=== PATIENT | male | born 1940 | race Caucasian/White ===

== ENCOUNTER → 2019-09-27 | Outpatient (CLI) | payer OTHER | LOC: SJCVC 13:31 | PROVIDERS: ATTEND Internal Medicine Cardiovascular Disease | DX: I48.21 Permanent atrial fibrillation (principal); R94.31 Abnormal electrocardiogram [ECG] [EKG]; I42.9 Cardiomyopathy, unspecified; E78.00 Pure hypercholesterolemia, unspecified; I10 Essential (primary) hypertension; I05.9 Rheumatic mitral valve disease, unspecified; D68.59 Other primary thrombophilia; E78.5 Hyperlipidemia, unspecified; Z79.899 Other long term (current) drug therapy ==

== ENCOUNTER 2019-12-19 17:02 | Inpatient (IN) | payer OTHER ==
[~2019-12-19] VITALS: Ht 198.1 cm; Wt 100.9 kg
[2019-12-19 17:06] VITALS: BP 106/74
[2019-12-19 18:09] LABS: HEMATOCRIT 35.6 % (42.0-52.0); HEMOGLOBIN 12.2 gm/dL (14.0-18.0); MCHC 34.2 g/dL (28.0-37.0); MCV 99.5 fL (80.0-100.0); PLATELET COUNT 183 thou/uL (150-400); RBC 3.58 mil/uL (4.50-6.00); RDW 13.5 % (10.5-14.5); WBC 4.1 thou/uL (4.0-11.0)
[2019-12-19 18:19] LABS: CALCIUM 8.7 mg/dL (8.5-10.1); CREATININE 0.9 mg/dL (0.7-1.3); POTASSIUM 4.7 mmol/L (3.5-5.1)
[2019-12-19 18:24] LABS: ALBUMIN 3.5 g/dL (3.4-5.0); TOTAL PROTEIN 6.5 g/dL (6.4-8.2)
[2019-12-19 18:26] LABS: INR 1.1; PROTIME 11.2 Seconds (9.3-11.4)
[2019-12-19 18:39] LABS: URINE BILIRUBIN NEGATIVE (Negative); URINE BLOOD NEGATIVE (Negative); URINE CLARITY CLEAR; URINE COLOR YELLOW; URINE GLUCOSE-RANDOM* NEGATIVE (Negative); URINE KETONES NEGATIVE (Negative); URINE LEUKOCYTES-REFLEX NEGATIVE (Negative); URINE NITRITE-REFLEX NEGATIVE (Negative); URINE PROTEIN (DIPSTICK) NEGATIVE (Negative); URINE SPECIFIC GRAVITY 1.015 (1.005-1.035); URINE UROBILINOGEN 0.2 E.U./dl (0.2-1.0)
[2019-12-19] MEDS ORDERED: CALCIUM 500+D1 EAC2 PO (18:45)
[2019-12-19] MEDS ORDERED: CHLORTHALIDONE25 MG PO (18:45)
[2019-12-19] MEDS ORDERED: DULCOLAX STOOL100 M1 PO (18:46)
[2019-12-19] MEDS ORDERED: FINASTERIDE5 MG PO (18:46)
[2019-12-19] MEDS ORDERED: ELIQUIS5 MG PO (18:46)
[2019-12-19] MEDS ORDERED: CARVEDILOL25 MG PO (18:46)
[2019-12-19] MEDS ORDERED: FISH OIL 1,0001 EAC9 PO (18:47)
[2019-12-19] MEDS ORDERED: GERITOL COMPLE1 EAC2 PO (18:47)
[2019-12-19] MEDS ORDERED: FLONASE 0.05%50 MCG NARES (18:47)
[2019-12-19 18:48] LABS: ABSOLUTE NEUTROPHILS 2.6 thou/uL (1.4-8.2)
[2019-12-19] MEDS ORDERED: MECLIZINE HCL25 M1 PO (18:48)
[2019-12-19] MEDS ORDERED: MIRALAX17 GM PO (18:49)
[2019-12-19] MEDS ORDERED: FLOMAX0.4 MG PO (18:50)
[2019-12-19 20:11] VITALS: BP 145/89
[2019-12-19 20:45] VITALS: BP 145/89
[2019-12-19 21:03] VITALS: BP 157/99
[2019-12-20 00:12] VITALS: BP 131/80
--- NOTE | 2019-12-20 03:19 | NUR ---
PATIENT TRANSFERRED FROM ER AT APPROXIMATELY 2100. ADMISSION COMPLETED. PATIENT DENIES PAIN AT ASSESSMENT. PATIENT A&O X 4 AND USES CALL LIGHT APPROPRIATELY. NIH STROKE SCALE ASSESSMENTS COMPLETED ORDERED. WILL CONTINUE TO MONITOR.
[2019-12-20 05:39] VITALS: BP 148/90
[2019-12-20 06:45] LABS: CHOLESTEROL 145 mg/dL (<200); HDL CHOLESTEROL 50 mg/dL (>40); LDL CHOLESTEROL 79 mg/dL (<100); TC:HDL 2.9 Ratio (Not establshd); TRIGLYCERIDE 84 mg/dL (<150); VLDL 17 mg/dL (<40)
[2019-12-20 06:48] LABS: SERUM ASSESSMENT Clear
--- NOTE | 2019-12-20 08:51 | EKG ---
[facility] [place] [address] ELECTROCARDIOGRAM REPORT Name: LYNDA KEMP Room #: 214-P ADM IN M.R.#: [id number] Admission: 12/19/19 Attend Phys: Ritika Childs MD Discharge: Date of : 42 Report #: [id number] THIS REPORT FOR: cc: Regan Burnett James L. DO Lundgren, Craig H. 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
--- NOTE | 2019-12-20 09:21 | 2DMMODE ---
[facility] [place] [address] 2 D/M-MODE ECHOCARDIOGRAM Name: LYNDA KEMP Room #: 214-P ADM IN M.R.#: [id number] Admission: 12/19/19 Attend Phys: Ritika Childs MD Discharge: Date of : 42 Report #: [id number] THIS REPORT FOR: cc: Regan Burnett James L. DO Lammoglia, Francisco J. MD ~ APPROVED REPORT Study performed: 12/20/2019 08:15:25 EXAM: Comprehensive 2D, Doppler, and color-flow Echocardiogram Patient Location: Bedside Room #: 214 Status: routine BSA: 2.19 HR: 63 bpm BP: 148/90 mmHg Rhythm: Atrial Fibrillation Other Information Study Quality: Adequate Indications Dizziness. Hx: Afib, HTN. 2D Dimensions RVDd: 34.91 mm IVSd: 9.43 (7-11mm) LVOT Diam: 22.29 (18-24mm) LVDd: 49.44 mm PWd: 8.63 (7-11mm) Ascending Ao: 35.67 (22-36mm) LVDs: 36.40 (25-40mm) Aortic Root: 36.04 mm Volumes Left Atrial Volume (Systole) Single Plane 4CH: 44.35 mL Single Plane 2CH: 64.23 mL Aortic Valve AoV Peak Blas.: 0.76 m/s AO Peak Gr.: 2.30 mmHg LVOT Max P.91 mmHg LVOT Max V: 0.69 m/s THANG Vmax: 3.56 cm2 [facility] [address] [place] [address] 2 D/M-MODE ECHOCARDIOGRAM Name: LYNDA KEMP Inez Room #: 214-P ADM IN M.R.#: [id number] Admission: 12/19/19 Attend Phys: Ritika Childs MD Discharge: Date of : 42 Report #: [id number] Mitral Valve MV Decel. Time: 183.08 ms MV E Max Blas.: 0.73 m/s Tricuspid Valve RAP Estimate: 5.00 mmHg Left Ventricle The left ventricle is normal size. There is normal LV segmental wall motion. There is normal left ventricular wall thickness. Left ventricular systolic function is normal. LVEF is 50-55%. This study is not technically sufficient to allow evaluation of the LV diastolic function due to atrial fibrillation. Right Ventricle The right ventricle is normal size. The right ventricular systolic function is normal. Atria Left atrium is at the upper limits of normal. The right atrium size is normal. Aortic Valve The aortic valve is normal in structure. Trace aortic regurgitation. There is no aortic valvular stenosis. Mitral Valve The mitral valve is normal in structure. Mild mitral regurgitation. Tricuspid Valve The tricuspid valve is normal in structure. Trace tricuspid regurgitation. Unable to assess PA pressure. Pulmonic Valve The pulmonary valve is normal in structure. Trace pulmonic regurgitation. Great Vessels The aortic root is normal in size. The ascending aorta is normal in size. IVC is normal in size and collapses >50% with inspiration. Pericardium There is no pericardial effusion. [facility] [address] [place] [address] 2 D/M-MODE ECHOCARDIOGRAM Name: LYNDA KEMP Room #: 214-P ADM IN M.R.#: [id number] Admission: 12/19/19 Attend Phys: Ritika Childs MD Discharge: Date of : 42 Report #: [id number] <Conclusion> The left ventricle is normal size. LVEF is 50-55%. The aortic valve is normal in structure. Trace aortic regurgitation. The mitral valve is normal in structure. Mild mitral regurgitation. The tricuspid valve is normal in structure. Trace tricuspid regurgitation. Unable to assess PA pressure. The pulmonary valve is normal in structure. Trace pulmonic regurgitation. There is no pericardial effusion. <ELECTRONICALLY SIGNED> By: Zi Guidry MD 12/20/19919 9 9 Zi Guidry MD /INF
[2019-12-20 16:30] VITALS: BP 134/76
--- NOTE | 2019-12-20 16:47 | NUR ---
Met with patient and at bedside. patient and reside in independent home in [place]. 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 PCP Dr Regan Burnett. Patient admits with stroke. Therapy evals in process. Plan 5N consult. Discussed 5N and skilled rehab. Patient and want to discuss possibility of 5N consult. Casemgt following.
--- NOTE | 2019-12-20 18:28 | NUR ---
ASSESSMENT CHARTED. PT ALERT AND ORIENTED. VSS. SEEN BY NEUROLOGIST. NEW ORDERS NOTED. DENIED HAVING PAIN OR DISCOMFORT. EVALUATED BY PT/OT AND SPEECH. AT THE BEDSIDE. UPDATED ON PT'S PROGRESS. NO CONCERNS AT THIS TIME.
[2019-12-20 19:40] VITALS: BP 114/72
--- NOTE | 2019-12-21 02:33 | NUR ---
ASSUMED CARE OF PATIENT AT 1900. NIH STROKE SCALE ASSESSMENTS REMAIN UNCHANGED. VSS. WILL CONTINUE TO MONITOR.
[2019-12-21 03:54] VITALS: BP 142/76
[2019-12-21 04:07] LABS: GLYCOHEMOGLOBIN (HGB A1C) 5.5 % (4.8-5.6)
[2019-12-21 05:56] LABS: HEMATOCRIT 37.3 % (42.0-52.0); HEMOGLOBIN 12.8 gm/dL (14.0-18.0); MCH 33.9 pg (26.0-34.0); MCHC 34.4 g/dL (28.0-37.0); MCV 98.4 fL (80.0-100.0); RBC 3.79 mil/uL (4.50-6.00); WBC 4.9 thou/uL (4.0-11.0)
[2019-12-21 07:00] LABS: CALCIUM 8.3 mg/dL (8.5-10.1); CREATININE 0.9 mg/dL (0.7-1.3); POTASSIUM 4.2 mmol/L (3.5-5.1)
[2019-12-21 08:28] VITALS: BP 134/79
--- NOTE | 2019-12-21 09:57 | NUR ---
ASSUMED CARE OF PT AT SHIFT CHANGE, WE WAS ABSENT FOR SRINIVASA. RETURNED A&0X4, LETHARGIC, SPEECH EVAL AND WILL DO VIDEO SWALLOW LATER THIS A.M. SEVERAL CONSULTS ACKNOWLEDGED, PT AMB STEADY YET ENCOURAGED TO SIT AT EDGE OF BED BEFORE RISING AND TO USE THE CALL LIGHT FOR ANY NEEDS INCL SBA W/AMBULATION. SPOUSE CAME AFTER 0900. POSS 5N TRANSFER, THEY ARE TO EVAL. DIET ORDER CHANGED AND PT REC TRAY AFTER WE CALLED FOR FOOD. SEE SEPARATE INTERVENTIONS FOR ASSESSMENTS
[2019-12-21 11:12] VITALS: BP 87/51
[2019-12-21 11:49] VITALS: BP 97/63
--- NOTE | 2019-12-21 14:28 | NUR ---
NOTE: UPON FURTHER ASSESSMENT PT'S ISSUES STARTED WITH A BOUT OF SHINGLES IN LATE OCTOBER, PT STARTED ON THE MEDICATION AND HAD AN ADVERSE REACTION, N/V. WAS TAKEN OFF THE MEDICATION, FEW DAYS LATER HAD HIS STROKE. SHINGLES ARE CLOSED AND ALMOST GONE, THEY ARE NOT BOTHERING PT.
--- NOTE | 2019-12-21 14:29 | NUR ---
5N virgil and patient accepted to 5N. Has consults today with planned transfer in am to 5N. Dr Taveras sp with patient and who are agreeable with transfer.
[2019-12-21 15:09] VITALS: BP 125/74
--- NOTE | 2019-12-21 16:39 | NUR ---
I have reviewed the documentation by LAYTON GERONIMO from 12/21/19 to 12/21/19 and I concur with it. RENZO REARDON
--- NOTE | 2019-12-21 18:43 | HC ---
[facility] [place] [address] CONSULTATION Name: LYNDA KEMP Room #: 214-P ADM IN .R.#: [id number] Admission: 12/19/19 Attend Phys: Ritika Childs MD Discharge: Date of : 42 Report #: [id number] THIS REPORT FOR: cc: Regan Burnett James L. DO Khosla, Parveen K. MD ~ CC: Regan Childs DATE OF SERVICE: 12/20/2019 HISTORY OF PRESENT ILLNESS: This is a 79-year-old male patient who was evaluated by me for the possibility of stroke. The stroke was demonstrated on the CT scan of the head as I understand. I talked to the Emergency Room physician who took care of this patient. I talked to Dr. Childs, the hospitalist, who is going to see this patient today. The nurses were there when I saw this patient and I talked to the patient's . The history is that this patient had shingles on 11/21. He was given acyclovir and he has noticed that he started having ambulation difficulty at that time, which has progressively become worse. Since acyclovir was started at that time, he attributed that to acyclovir, but discontinuation of the acyclovir has not stopped the progression of the patient's ambulation difficulty. He did not have any significant ambulation difficulty before. REVIEW OF SYSTEMS: Indicate that he has atrial fibrillation and he has been on long-term anticoagulation. He just missed maybe 1 dose. He also has a history of nonischemic cardiomyopathy. He tells me that he has a history of hypertension. He has hyponatremia, but he also has hyponatremia before. He denies any prior history of stroke. 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 He denies any ENT, respiratory, , musculoskeletal, constitutional, dermatological, hematological, psychiatric, throat, allergic symptom associated with present symptomatology. PAST MEDICAL HISTORY: Positive for herpes zoster on . FAMILY HISTORY: Unremarkable. SOCIAL HISTORY: He does not drink alcohol or smoke on a regular basis. PHYSICAL EXAMINATION: Indicate that the patient is alert, responsive, able to follow simple and complex command. His speech, concentration, fund of knowledge is at his baseline. 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 He has symmetrical strength, sensation, reflexes and tone in all 4 extremities. Reflexes are somewhat diminished in the lower extremities. His plantars are mute, but his position sense is present and he [address] [address] CONSULTATION Name: LYNDA KEMP Room #: 214-P [facility] IN M.R.#: [id number] Admission: 12/19/19 Attend Phys: Ritika Childs MD Discharge: Date of : 42 Report #: [id number] says that his feeling has not changed much. His pulses are somewhat difficult to feel, but I think is palpable. He does have atrial fibrillation, but there was no respiratory difficulty or rhonchi was noticed. He is a very developed individual who does not have any dysmorphic features of eyes, ears and face. His vision and hearing looks adequate. His blood pressure is 148/90, respiration is 17, pulse is 97.8. LABORATORY DATA: His white count is 4.1. His sodium is slightly low at 127. He does not have any edema, cyanosis or jaundice. His hearing and vision is adequate. CT scan showed a question of brainstem CVA. IMPRESSION: This patient may have had a CVA in the brainstem. That needs to be confirmed by MRI. If MRI confirmed that, then we will need to figure out why he is having stroke. He will need cardiac workup. That is being addressed by Cardiology, but he may need some ID workup also because herpes zoster is known to cause strokes or increase the chances of patient having stroke. His reflexes are somewhat diminished and we will check a B12 level. His further workup will depend upon the outcome of the above testing. Thank you very much for this referral. <ELECTRONICALLY SIGNED> By: Jose Carlos Marquez MD 12/21/19 1843 1047 1430 Jose Carlos Marquez MD /nt
[2019-12-21 20:26] VITALS: BP 124/72
[2019-12-22 04:10] VITALS: BP 139/83
--- NOTE | 2019-12-22 05:38 | NUR ---
SLEPT MOST OF SHIFT. WORKING ON GOALS AND PLAN OF CARE FOR NOC. PROGRESSING TOWARDS GOALS FOR TX TO 5N TODAY. UP AD NOVA IN ROOM WITH STEADY GAIT. DENIES COMPLAINTS OF PAIN OR SHORTNESS. CONTINUE TO ASSES CLOSELY.
--- NOTE | 2019-12-22 08:16 | NUR ---
ASSUMED CARE OF PT AT SHIFT CHANGE, SPEECH CLEARER THAN DAY PRIOR. UP AD NOVA. SEE SEPARATE INTERVENTIONS FOR ASSESSMENTS. SPOUSE TO COME AFTER 0900. PT STATES HE FEELS BETTER. CARDIAC MONITORED. ENCOURAGED HIM TO USE CALL LIGHT FOR ANY NEEDS. BLIND R EYE. BOWEL MEDS GIVEN, WILL WALK IN HALLS TODAY AGAIN
[2019-12-22 08:27] VITALS: BP 121/71; BP 127/77; BP 136/81
[2019-12-22] MEDS ORDERED: COZAAR 25 MG TA25 M1 PO (11:54)
[2019-12-22] MEDS ORDERED: TYLENOL325 MG PO (11:54)
[2019-12-22] MEDS ORDERED: ASA5UEC PO (11:54)
--- NOTE | 2019-12-22 12:25 | NUR ---
Pt dcing to 5N acute rehab. The attending has spoken with pt and his and they are agreeable. Dr. Taveras was here and has spoken with all parties. All in agreement for dc to acute rehab vs referrals to or [facility] at this time. Pt's goal is to return home with his after rehabing. 5N cm to follow.
--- NOTE | 2019-12-22 15:56 | NUR ---
DISCHARGED PT TO INHOUSE FACILITY 5N, AFTER GIVING REPORT TO ION ROJO. LET HER KNOW HE HAD HOME MEDS IN HIS BAG, SHE ACKNOWLEDGED AND SAID SHE'D COME TO ROOM SHORTLY. PT SET UP IN CHAIR WITH CALL LIGHT
--- NOTE | 2019-12-22 17:46 | NUR ---
I have reviewed the documentation by LAYTON GERONIMO from 12/22/19 to 12/22/19 and I concur with it. RENZO REARDON
== END 2019-12-22 15:24 | DRG 65 ==
LOC: ER 17:02 → EROBS 19:48 → 2N 19:48
PROVIDERS: Emergency Medicine; Nurse Practitioner Family; ADMIT Internal Medicine; ATTEND Internal Medicine
DX: I63.89 Other cerebral infarction (principal); E87.1 Hypo-osmolality and hyponatremia; D68.59 Other primary thrombophilia; I48.20 Chronic atrial fibrillation, unspecified; I48.21 Permanent atrial fibrillation; I10 Essential (primary) hypertension; N40.0 Benign prostatic hyperplasia without lower urinary tract symptoms; E78.5 Hyperlipidemia, unspecified; G47.00 Insomnia, unspecified; B02.9 Zoster without complications; R13.10 Dysphagia, unspecified; D35.2 Benign neoplasm of pituitary gland; I25.5 Ischemic cardiomyopathy; E53.8 Deficiency of other specified B group vitamins; Z79.82 Long term (current) use of aspirin; Z79.899 Other long term (current) drug therapy; Z85.47 Personal history of malignant neoplasm of testis
CPT/HCPCS: 10081

== ENCOUNTER 2019-12-21 11:43 | Inpatient (IN) | payer OTHER ==
[~2019-12-21] VITALS: Ht 182.9 cm; Wt 101.2 kg
--- NOTE | ~2019-12-21 | PLAN ---
[facility] [place] [address] REHAB UNIT PLAN OF CARE Name: LYNDA KEMP Room #: 509-P ADM IN M.R.#: [id number] Admission: 12/22/19 Attend Phys: Ian Yu MD Discharge: Date of : 42 Report #: [id number] THIS REPORT FOR: //name// CC: Ian Burnett DATE OF SERVICE: 12/25/2019 PROGRESS NOTE/OVERALL PLAN OF CARE SUBJECTIVE: The patient was seen back today in followup. He is in no distress. PHYSICAL EXAMINATION: VITAL SIGNS: Temperature 98.1, pulse 66, respirations 16, blood pressure 126/81. GENERAL: The patient is alert, pleasant. He is appropriate. HEENT: Appeared to be benign. NEUROLOGIC: No focal weakness of both upper and lower extremities. He remains with dysphagia and is on a nectar thick liquid diet. He has a history of permanent atrial fibrillation. We will be adding VitalStim to his program as discussed with physical therapy. He has been contact guard with basic transfers and has been contact guard for ambulation 200 feet. In occupational therapy, lower body dressing is supervision. The patient did miss some therapy on 12/23/2019 due to some low blood pressure. Pressure this morning was 126/81. ASSESSMENT: 1. 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 2. Dysphagia, on thickened liquids. 3. Gait instability with gait ataxia. 4. Pituitary macroadenoma. 5. Recent herpes zoster with Infectious Disease involved. 6. Ischemic cardiomyopathy. 7. History of chronic atrial fibrillation. 8. Hypertension. 9. Hyperlipidemia. PLAN: The overall plan of care is based on the preadmission screen, post-admission physician evaluation and information garnered from therapy assessments. 1. Estimated length of stay is probably 7-14 days. 2. Medical prognosis is reasonably good. 3. Anticipated interventions includes the interdisciplinary acute inpatient [facility] [address] [place] [address] REHAB UNIT PLAN OF CARE Name: LYNDA KEMP Room #: 509-P [facility]#: [id number] Admission: 12/22/19 Attend Phys: Ian Yu MD Discharge: Date of : 42 Report #: [id number] rehabilitation program. 4. Anticipated functional outcomes would be for the patient to become modified independent with transfers, mobility, ADLs, improvement with basic swallowing and cognition, so that he can return back to the home setting. 5. Discharge destination would be back home with . 6. Expected therapy by discipline includes PT and OT 1-1/2 hours per day, each 5 days a week throughout the duration of the acute inpatient rehabilitation stay. By: [id number] Ian Yu MD /PMT
--- NOTE | ~2019-12-21 | EKG ---
[facility] [place] [address] ELECTROCARDIOGRAM REPORT Name: LYNDA KEMP Room #: 509- ADM IN M.R.#: [id number] Admission: 12/22/19 Attend Phys: Ian Yu MD Discharge: Date of : 42 Report #: [id number] THIS REPORT FOR: cc: Regan Burnett James L. 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
[~2019-12-21 11:43] MED LIST: CALCIUM 500+D1 EAC2 PO; CARVEDILOL25 MG PO; CHLORTHALIDONE25 MG PO; DULCOLAX STOOL100 M1 PO; ELIQUIS5 MG PO; FINASTERIDE5 MG PO; FISH OIL 1,0001 EAC9 PO; FLOMAX0.4 MG PO; FLONASE 0.05%50 MCG NARES; GERITOL COMPLE1 EAC2 PO; MECLIZINE HCL25 M1 PO; MIRALAX17 GM PO
[2019-12-22] MEDS ORDERED: TYLENOL325 MG PO (11:54)
[2019-12-22] MEDS ORDERED: COZAAR 25 MG TA25 M1 PO (11:54)
[2019-12-22] MEDS ORDERED: ASA5UEC PO (11:54)
--- NOTE | 2019-12-22 15:57 | NUR ---
chart review. pt new to acute rehab this afternoon. juan josé came up with him, srinivas in restroon. cm visited wit juan josé phone call, intro to cm and team meeting. juan josé they live in house, he is independent. has walker. have 12 stairs to upper level bilat handrails and a sprawl staircase down to basement 13, he drives, manage own medication. no rehab or hh in past per . will cont following as needed for dc needs.
[2019-12-22 16:00] VITALS: BP 126/79
--- NOTE | 2019-12-22 18:25 | NUR ---
ASSUMED CARE OF PT AT 1530 WHEN PT BROUGHT TO UNIT BY NURSE ON PRIOR UNIT. RECEIVED REPORT FROM ALIA HERNANDEZ PRIOR TO TRANSFER TO UNIT. SPOUSE IS AT THE BEDSIDE. ADMISSION HX AND ASSESSMENT COMPLETED. WEIGHT, HEIGHT AND VITALS OBTAINED AND DOCUMENTED. ASMISSION EDUCATION COMPLETED. PT PROVIDED WITH DINNER. ADMISSION CONSENTS SIGNED BY PATIENT AT TIME OF ADMISSION. CONSULTS CALLED WITH EXCEPTION OF ENDOCRINLOGY AND NEUROLOGY WHO WERE UNREACHABLE AFTER HOURS. FALL PRECAUTIONS IN PLACE AND NURSING WILL CONTINUE TO MONITOR.
[2019-12-22 19:31] VITALS: BP 126/60
--- NOTE | 2019-12-23 05:12 | NUR ---
Armin is alert and oriented x3, pleasant with clear voice, normal respirations, with no nausea and vomiting noted. Patient is on Aspiraion precations, with mechanical soft diet and nectar thick liquids, but is able to take his meds whole with thickened liquid, puree or applesauce. Patient received his bedtime medications and pain pill with applesauce upon request, stating he wanted to go to bed early. He did not like too much that everytime he needed to use the bathroom or transfer, he would maría to call for help and use the gaitbelt, and was reassured and re-educated by nurse about the safety concerns associated. Patient retired into his bed from his chair, and remained in bed resting, eyes closed and visible, normal respirations
[2019-12-23 05:38] LABS: HEMATOCRIT 35.6 % (42.0-52.0); HEMOGLOBIN 12.3 gm/dL (14.0-18.0); MCH 33.9 pg (26.0-34.0); MCHC 34.6 g/dL (28.0-37.0); MCV 98.1 fL (80.0-100.0); RBC 3.63 mil/uL (4.50-6.00); RDW 12.9 % (10.5-14.5); WBC 5.6 thou/uL (4.0-11.0)
[2019-12-23 06:02] LABS: CALCIUM 8.2 mg/dL (8.5-10.1); CREATININE 0.8 mg/dL (0.7-1.3); POTASSIUM 4.1 mmol/L (3.5-5.1)
[2019-12-23 08:00] VITALS: BP 129/72
--- NOTE | 2019-12-23 10:39 | NUR ---
ASSUMED CARE AT 0700. PATIENT IS ALERT AND ORIENTED X3. NO WEAKNESS NOTED AT THIS TIME. PATIENT CONTINUES ON NECTAR THICK LIQUIDS. UP IN THE CHAIR FOR BREAKFAST. HX AFIB. PATIENT IS NONCOMPLIANT WITH CALLING FOR ASSISTANCE. UP TO THE BATHROOM WITHOUT ASSISTANCE. FALL AND SAFETY PROTOCOLS IN PLACE. DENIES PAIN. CONTINUES TO PROGRESS SLOWLY TOWARDS D/C GOALS. WILL CONTINUE TO [facility].
--- NOTE | 2019-12-23 10:43 | NUR ---
0945 PATIENT BECAME DIAPHORETEIC AND DIZZY WHILE WORKING WITH O.T. BP 102/63, P67. PATIENT ASSISTED BACK TO BED. S.L. STARTED IN HIS LEFT FORARM WITH 2O GA JELCO. IV SITE WITHOUT REDNESS OR SWELLING. PATIENTS BP RECHECKED IN BED. HIS BP 131/70. P66. DR. VINCENT NOTIIFED. NS 500 STARTED. AT [facility]. WE WILL HOLD P.T. UNTIL SEEN DRY DR. VINCENT. WILL REVIEW LABS WITH DR. VINCENT UPON HER ARRIVAL ON THE UNIT. PATIENT IS RESTING QUIETLY IN BED WITH CALL LIGHT IN REACH.
[2019-12-23 19:34] VITALS: BP 145/96
[2019-12-24 08:14] VITALS: BP 100/64
--- NOTE | 2019-12-24 10:09 | NUR ---
[facility] CARE AT 0700. PATIENT IS ALERT AND ORIENTED X4. PATIENT GILL'S, CORE MANAGER ARE EQUAL. LUNGS ARE CLEAR AND DEMINISHED. ABD IS SOFT WITH BSX4. BP LOW. DR. KEMP HERE TO SEE PATIENT. ORDERS RECIEVED TO HOLD TENORMIN THIS A.M. BREAKFAST SERVED IN BED. UP WITH SBA. FALL AND SAFETY PROTOCOLS IN PLACE. DENIES PAIN. CONTINUES TO PROGRESS TOWARDS D/C GOALS. PATIENT HAS S.L. IN HIS LEFT FORARM. NO REDNESS OR SWELLING NOTED. WILL CONTINUE TO MONITER.
[2019-12-24 19:24] VITALS: BP 126/81
--- NOTE | 2019-12-25 04:54 | NUR ---
Patient is alert and oriented x4 with a joviasl personality. He is compliant with all his medications, but still struggles with compliance on calling for assistance when transferring or using the rest room. Nursing staff is re-inforcing teaching on calling for help as often as need arises. Patient vitals are normal and he has no major complaints when asked. resident is in his room, in bed, resting with his eyes closed, breathing normally with no signs of distress.
[2019-12-25 08:00] VITALS: BP 147/95
--- NOTE | 2019-12-25 13:34 | NUR ---
ASSUMED CARE AT 0700. PT DID NOT SLEEP WELL LAST NIGHT. DENIES ANY PAIN OR DISCOMFORT. DOES NOT REQUIRE ANY SLEEP AID FOR NOW. PT IS ALERT AND ORIENTATED BUT SOMETIMES FORGETFUL AND NEED REMINDER TO CALL FOR ASSISTANCE. HE IS STANDBY WITHOUT ANY ASSITIVE DEVICE. ATE 100% OF HIS MEAL AND TOOK ALL HIS MEDS ONE AT A TIME WITH PUDDING. SPEECH THERAPY AT BEDSIDE FOR EVALUATION AND EMPHASIZED TO USE NECTAR LIQUID PT HAS REPORTED DRINKING THIN LIQUID. JANE ROUNDER AND BACKER AWARE, LUNGS CLEAR AND PT IS COMFORTABLE WITH NO COMPLAINS OF COUGHING OR HAVING FEVER. PARTICIPATING IN THERAPY AND PROGRESSING. BROUGHT HOME MEDS AND OK PER JANE TO CONTINUE. MEDICATION SENT TO PHARMACY AND OK TO ADMINISTER TWICE DAILY. CONT TO MONITOR.
[2019-12-25 19:47] VITALS: BP 132/71
--- NOTE | 2019-12-26 04:10 | NUR ---
assumed care approx 1900 evening 12/24. pt sitting up in bed at change of shift alert and oriented x4, appropriate and cooperative. pt stated he had a good day with therapy. pt took hs meds with pudding tolerating well. pt appears to be sleeping soundly with hourly rounding checks. bed alarm on and call light in reach. will continue to monitor.
[2019-12-26 06:09] LABS: ABSOLUTE NEUTROPHILS 3.7 thou/uL (1.4-8.2); BASOPHILS 0.4 % (0.0-2.0); EOSINOPHILS 1.6 % (0.0-3.0); HEMATOCRIT 36.3 % (42.0-52.0); HEMOGLOBIN 12.4 gm/dL (14.0-18.0); LYMPHOCYTES 17.2 % (24.0-44.0); MCHC 34.1 g/dL (28.0-37.0); MCV 96.8 fL (80.0-100.0); MONOCYTES 11.2 % (1.0-8.0); PLATELET COUNT 214 thou/uL (150-400); POLYS 69.6 % (36.0-66.0); RBC 3.75 mil/uL (4.50-6.00); RDW 13.1 % (10.5-14.5); WBC 5.4 thou/uL (4.0-11.0)
[2019-12-26 06:27] LABS: CALCIUM 8.7 mg/dL (8.5-10.1); CREATININE 0.8 mg/dL (0.7-1.3); MAGNESIUM 1.7 mg/dL (1.8-2.4); POTASSIUM 4.1 mmol/L (3.5-5.1)
[2019-12-26 07:55] VITALS: BP 129/89
--- NOTE | 2019-12-26 10:01 | HC ---
[facility] [place] [address] CONSULTATION Name: LYNDA KEMP Room #: 509-P [facility] IN .R.#: [id number] Admission: 12/22/19 Attend Phys: Ian Yu MD Discharge: Date of : 41 Report #: [id number] THIS REPORT FOR: cc: Regan Burnett James L. DO Deutch,David Schumacher. PhD ~ CC: Ian Burnett DATE OF SERVICE: 12/24/2019 BEHAVIORAL STATUS EXAM ATTENDING PHYSICIAN: Ian Yu MD INSPECTOR OUTSIDE STEAM DISTRIBUTION: David Souza, PhD CLINICAL PRESENTATION: The patient is a 79-year-old male admitted to [facility] on 12/19/2019 with slurred speech. 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 His symptoms include slurred speech, weakness, and dysphagia. His past medical history included hypertension, hyperlipidemia and hypercoagulability. 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 A complete description of his medical condition and history can be found in his medical record. Neuropsychological consultation was requested to provide assistance in the assessment of cognitive and emotional status and provide recommendations. Prior to this recent medical event, he is reported to have been living independently with his in their home. He was getting treatment for a shingles infection and taking medication about 3 weeks prior to his hospitalization and developed dizziness. In addition to the dizziness his and family noticed difficulty with speech and brought him in to the hospital. 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 Prior to this most recent deterioration in functioning, he is described as having been independent with instrumental activities of daily living. His has always managed his medication. TECHNIQUES UTILIZED: Clinical interview, review of medical records, staff consultation and behavioral observation, family interview -- , Mini Mental Status Exam 2 standard version, clock drawing, and verbal fluency assessment. [facility] [address] [place] [address] CONSULTATION Name: LYNDA KEMP Room #: 509-P [facility] IN ..#: [id number] Admission: 12/22/19 Attend Phys: Ian Yu MD Discharge: Date of : 41 Report #: [id number] EXAMINATION FINDINGS: The patient was alert and cooperative with the assessment. He does not present with an aphasia. However, he does have decreased auditory comprehension. The patient is utilizing hearing aids, however, comprehension is impaired. Problems with hearing preceded this hospitalization. He does not report auditory or visual hallucinations. There is no prior history of treatment for depression or anxiety. The patient currently does not report feeling anxious or depressed. His does not identify symptoms of anxiety or depression at this time. The patient reports having decreased energy level and difficulty with sleep. There is no reported history of alcohol or drug use. The patient does not report difficulty with short-term memory. His performance on the MMSE 2 brief version is extremely low with a raw score of 11/16. He was 3/3 for initial registration. However, he required multiple attempts at encoding and several attempts were made at introducing more simple terms. While hearing aids are being used, as indicated, auditory comprehension is poor. He was 2/5 for orientation to time and 4/[address] He was 2/3 for immediate recall of 3 items after a brief time delay and distraction. Performance on the MMSE 2 standard version was extremely low with a raw score of 20/30, which is a T score of 28, percentile rank of less than 1. He was 1/5 for serial sevens, 2/2 for naming, 1/1 for repetition, 3/3 for auditory comprehension. He could read and follow a single command and write a sentence. However, the patient could not copy a simple geometric design. Clock drawing included perseveration and impulsivity, with somewhat careless and rushed completion. Variability in executive functioning is suggested. Verbal fluency assessment reveals letter fluency in the low average range with a T score of 39 and percentile rank of 14. Category fluency was extremely low with a raw score of 15, T score of 21 and percentile rank of less than 1. Overall, total fluency was a raw score of 34, T score of 22 and percentile rank of less than 1. The patient is presenting with bmixyedw-sa-yyzosy cognitive deficits. Deficits are noted in orientation, attention/concentration, immediate recall, visual spatial construction and executive functioning. 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 Current neurocognitive functioning is kczizwkf-tm-vqhfhkdk impaired and while there is a vascular component to this presentation, there also appears to be more global deficits. He will require 24-hour care to the extent of assistance in the management of medication, finances and nutrition. A followup neuropsychological assessment is indicated to clarify cognitive status. Thank you very much for allowing me to provide the consultation on this patient. <ELECTRONICALLY SIGNED> By: David Souza, PhD 12/26/19 1001 1728 1820 David Souza, PhD /nt
--- NOTE | 2019-12-26 13:56 | NUR ---
team meeting, reccommendation: mech soft, nectar thick with vital stim. 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 outpt neuro pysch. has 2 childred. needs edcuation with and therapy. dc 01/02 hh with (pt, ot, st, vital stim ). 12/31 possible change to mod I in room. no driving until cleared by .
--- NOTE | 2019-12-26 15:49 | NUR ---
ASSUMED CARE AT 0700. PT REPORTED DID NOT SLEEP WELL THE LAST 2 NIGHTS AND IS RECEPTIVE TO TRIAL MELATONIN. ANGIE MCMAHAN INFORMED AND WILL START 1ST DOSE TONIGHT. PT DENIES ANY PAIN. NEEDS REINFORCEMENT TO CALL FOR ASSISTANCE PT IS GETTING UP WITHOUT CALLING TO USE THE BATHROOM. DR MOSQUEDA NOTIFIED REGARDING HYPONATREMIA, ORDERS FOR URINE SPECIMEN SENT FOR SODIUM AND CORTISOL. PARTICIPATING WITH THERAPY. PROGRESSING WITH THERAPY. CONT TO MONITOR.
[2019-12-26 16:46] LABS: URINE BILIRUBIN NEGATIVE (Negative); URINE BLOOD TRACE (Negative); URINE CLARITY CLEAR; URINE COLOR YELLOW; URINE GLUCOSE-RANDOM* NEGATIVE (Negative); URINE KETONES NEGATIVE (Negative); URINE LEUKOCYTES NEGATIVE (Negative); URINE NITRITE NEGATIVE (Negative); URINE PROTEIN (DIPSTICK) NEGATIVE (Negative); URINE SPECIFIC GRAVITY 1.025 (1.005-1.035); URINE UROBILINOGEN 0.2 E.U./dl (0.2-1.0)
[2019-12-26 19:55] VITALS: BP 128/79
--- NOTE | 2019-12-27 03:05 | NUR ---
Assumed care of patient this pm shift. Patient sleeping currently. Patient in good spirits, calm and cooperative. Patient is medication adherent and takes pills in pudding. Patients assessment shows no signs of acute distress. Vital signs stable. Patient is alert and oriented x3. Breath sounds clear, bowel sounds present, s1 s2 heard with auscultation. Patient denies pain. We will continue to monitor per hospital policy.
[2019-12-27 08:00] VITALS: BP 130/83
--- NOTE | 2019-12-27 09:30 | NUR ---
cm spoke with to luz marina about hh companies, cm checked and [facility] does go to their home location and st does do vital stim with [facility]. per ok to send referral to [facility]. cm sent referral and will check to see if can take him for hh needs.
--- NOTE | 2019-12-27 10:52 | NUR ---
ASSUMED CARE AT 0700. PATIENT IS ALERT AND ORINETED X4. PATIENT GILL'S, PATIENT IS UP WITH ASSIST OF 1 STAFF AND GAIT BELT. LUNGS ARE CLEAR. ABD IS SOFT WITH BSX4. FALL AND SAFETY PROTOCOLS IN PLACE. DENIES PAIN AT THIS TIME. WILL CONTINUE TO MONITER.
--- NOTE | 2019-12-27 15:13 | H ---
[facility] [place] [address] HISTORY AND PHYSICAL Name: LYNDA KEMP Room #: 509-P [facility] IN M.R.#: [id number] Admission: 12/22/19 Attend Phys: Ian Yu MD Discharge: Date of : 41 Report #: [id number] THIS REPORT FOR: cc: Regan Burnett James L. DO Smithson, David G. MD ~ CC: Ian Burnett DATE OF SERVICE: 12/22/2019 HISTORY AND PHYSICAL/POST ADMISSION PHYSICIAN EVALUATION HISTORY OF PRESENT ILLNESS: The patient is a 79-year-old male who was originally admitted to [facility] on 12/19/2019 with slurred speech. MRI confirmed a left mid rhonda infarct and he also was found to have a pituitary macroadenoma. Neurology, Cardiology has been involved and Endocrinology. He was noted to have slurred speech, weakness, dysphagia, and is on thickened liquids. He was felt to be ready for transfer for acute in-hospital inpatient rehabilitation. Neurology has diagnosed him with the brainstem stroke. PAST MEDICAL HISTORY: Includes hypertension, hyperlipidemia, and hypercoagulability. PAST SURGICAL HISTORY: Hernia repair, neck surgery, and testicular biopsy. HABITS: Nonsmoker, occasional alcohol usage. MEDICATIONS: Please see the full medication listing. SOCIAL HISTORY: Premorbidly living at home with his . 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 No assistive device, was independent with ADLs and shared IADLs, right hand dominant. ALLERGIES: ACYCLOVIR. REVIEW OF SYSTEMS: The patient did not offer any complaints of chest pain, shortness of breath or abdominal discomfort. PHYSICAL EXAMINATION: GENERAL: The patient was seen later yesterday. He was alert, pleasant, in no obvious distress on room air. VITAL SIGNS: Temperature 98, pulse 71, respirations 16, blood pressure 126/60. HEENT: Facies appeared symmetric. CHEST: Sounded clear to auscultation. [facility] [address] [place] [address] HISTORY AND PHYSICAL Name: LYNDA KEMP Room #: 509-P [facility] IN [facility]#: [id number] Admission: 12/22/19 Attend Phys: Ian Yu MD Discharge: Date of : 41 Report #: [id number] CARDIOVASCULAR: Regular rate and rhythm. ABDOMEN: Bowel sounds positive, nontender. NEUROLOGICAL: Does have some slurring of his speech. Bilateral upper extremities strength appears to be good. He did reasonably well with qkskkv-fx-ubxx bilaterally. In his lower extremities, he has at least a grade 4-/5. He does have some problems with balance with coming to stand, mod assist with some ataxia and balance deficits. He also is on a nectar thickened liquid diet. ASSESSMENT: 1. 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 2. Dysphagia, on thickened liquids. 3. Pituitary macroadenoma. 4. Recent herpes zoster. Infectious Disease has been involved. 5. Ischemic cardiomyopathy. 6. Atrial fibrillation. 7. Hypertension. 8. Hyperlipidemia. PLAN: The patient has been admitted for acute in-hospital inpatient rehabilitation. From a postadmission physician evaluation perspective, there are no relevant changes since the preadmission screening. Please see the above review of prior and current medical and functional conditions and comorbidities. Please see the patient's previous and current functional status. As far as risk of complications, the patient has multiple medical comorbidities as noted above. Initial plan of care involves the interdisciplinary acute inpatient rehabilitation program. Measurable functional goals would be for the patient to become modified independent with transfers, mobility, ADLs and to improve as far as cognition and swallowing. Prognosis is reasonably good with estimated length of stay probably at least 7-14 days. Potential barriers would include the patient's functional deficits, swallowing deficits and medical comorbidities. <ELECTRONICALLY SIGNED> By: Ian Yu MD 12/27/19 1513 1057 1111 Ian Yu MD /nt
--- NOTE | 2019-12-27 15:13 | H ---
[facility] [place] [address] HISTORY AND PHYSICAL Name: LYNDA KEMP Room #: 509-P [facility] IN M.R.#: [id number] Admission: 12/22/19 Attend Phys: Ian Yu MD Discharge: Date of : 41 Report #: [id number] THIS REPORT FOR: cc: Regan Burnett James L. DO Smithson, David G. MD ~ CC: Ian Burnett DATE OF SERVICE: 12/22/2019 CONTINUATION PAST MEDICAL HISTORY: Includes hypertension, hyperlipidemia, and hypercoagulability. PAST SURGICAL HISTORY: Hernia repair, neck surgery, and testicular biopsy. HABITS: Nonsmoker, occasional alcohol usage. MEDICATIONS: Please see the full medication listing. SOCIAL HISTORY: Premorbidly living at home with his . 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 No assistive device, was independent with ADLs and shared IADLs, right hand dominant. ALLERGIES: ACYCLOVIR. REVIEW OF SYSTEMS: The patient did not offer any complaints of chest pain, shortness of breath or abdominal discomfort. PHYSICAL EXAMINATION: GENERAL: The patient was seen later yesterday. He was alert, pleasant, in no obvious distress on room air. VITAL SIGNS: Temperature 98, pulse 71, respirations 16, blood pressure 126/60. HEENT: Facies appeared symmetric. CHEST: Sounded clear to auscultation. CARDIOVASCULAR: Regular rate and rhythm. ABDOMEN: Bowel sounds positive, nontender. NEUROLOGICAL: Does have some slurring of his speech. Bilateral upper extremities strength appears to be good. He did reasonably well with sgvgea-xb-tssu bilaterally. In his lower extremities, he has at least a grade 4-/5. He does have some problems with balance with coming to stand, mod assist with some ataxia and balance deficits. He also is on a nectar thickened liquid diet. [facility] [address] [place] [address] HISTORY AND PHYSICAL Name: LYNDA KEMP Room #: 509-P [facility] IN [facility]#: [id number] Admission: 12/22/19 Attend Phys: Ian Yu MD Discharge: Date of : 41 Report #: [id number] ASSESSMENT: 1. 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 2. Dysphagia, on thickened liquids. 3. Pituitary macroadenoma. 4. Recent herpes zoster. Infectious Disease has been involved. 5. Ischemic cardiomyopathy. 6. Atrial fibrillation. 7. Hypertension. 8. Hyperlipidemia. PLAN: The patient has been admitted for acute in-hospital inpatient rehabilitation. From a postadmission physician evaluation perspective, there are no relevant changes since the preadmission screening. Please see the above review of prior and current medical and functional conditions and comorbidities. Please see the patient's previous and current functional status. As far as risk of complications, the patient has multiple medical comorbidities as noted above. Initial plan of care involves the interdisciplinary acute inpatient rehabilitation program. Measurable functional goals would be for the patient to become modified independent with transfers, mobility, ADLs and to improve as far as cognition and swallowing. Prognosis is reasonably good with estimated length of stay probably at least 7-14 days. Potential barriers would include the patient's functional deficits, swallowing deficits and medical comorbidities. <ELECTRONICALLY SIGNED> By: Ian Yu MD 12/27/19 1513 1102 1131 Ian Yu MD /nt
[2019-12-27 19:23] VITALS: BP 119/78
--- NOTE | 2019-12-28 02:34 | NUR ---
assumed care approx 1899 evening 12/26. pt sitting up in recliner at change of shift resting and watching tv.pt alert and oriented x4, appropriate and cooperative.pt took hs meds with nectar thick juice tolerating well. pt voiding per urinal. pt appears to be sleeping soundly with hourly rounding checks. bed alarm on and call light in reach. will continue to monitor.
[2019-12-28 06:11] LABS: ALBUMIN 3.5 g/dL (3.4-5.0); CALCIUM 8.6 mg/dL (8.5-10.1); PHOSPHORUS 3.1 mg/dL (2.5-4.9); POTASSIUM 4.9 mmol/L (3.5-5.1)
--- NOTE | 2019-12-28 06:28 | NUR ---
pt insisting he has been given the ok to be up on his own in room. pt found up standing by the window. advised pt no order has been recd to be up on his own and pt became very argumentative stating this marine underwriter did not know what she was talking about and he could do be up by himself if he wanted to. pt also refused to wear yellow socks and/or shoes in room. continued to advise pt not to get up on his own to avoid a possible fall.pt upset and agitated and refused to cooperate. call light in reach. will continue to monitor.
[2019-12-28 08:00] VITALS: BP 132/80
--- NOTE | 2019-12-28 10:01 | NUR ---
arnel called [facility] outpt therapy to see if they do vital stim, per yasmin no they do not do vital stim, # [phone]. arnel passed on information to carpenter/labor, and luz marina via phone call, she agree with [facility]cp of [facility] h[facility] + vital stim, luz marina stated that is what i thought but it never hurts to ask per luz marina. will cont following as needed for dc needs.
[2019-12-28 10:52] VITALS: BP 132/80
--- NOTE | 2019-12-28 11:04 | NUR ---
ASSUMED CARE AT 0700. PATIENT IS ALERT AND ORIENTED X4. PATIENT GILL', GORE STITCHER ARE EQUAL. LUNGS ARE CLEAR. ABD IS SOFT WITH BSX4. UP IN ROOM . PATIENT IS MOD/I. UP IN CHAIR FOR MEALS. FALL AND SAFETY PROTOCOLS IN PLACE. DENIES PAIN. S.L. PATIENT AND INTACT IN HIS LEFT F.A. CONTINUES TO PROGESS SLOWLY TOWARDS D/C GOALS. WILL CONTINUE TO MONITER.
[2019-12-28 19:28] VITALS: BP 134/85
--- NOTE | 2019-12-29 01:10 | NUR ---
ASSUMED CARE OF PT AT 1915 ON 12/28/19. PT IS A&OX4. IS ON ROOM AIR. DENIES PAIN. IS STABLE. IS UP MOD I. HOURLY ROUNDING CONTIUED. LABS & VITALS REVIEWED. PT IS CURRENTLY SLEEPING. CALL LIGHT WITHIN REACH. PT DENIES CONCERNS. CONTINUES ON 1500 ML FLUID RESTRICITONS. WILL CONTINUE TO MONITOR.
[2019-12-29 07:16] VITALS: BP 133/80
--- NOTE | 2019-12-29 08:18 | HC ---
[facility] [place] [address] CONSULTATION Name: LYNDA KEMP Room #: 509-P [facility] IN .R.#: [id number] Admission: 12/22/19 Attend Phys: Ian Yu MD Discharge: Date of : 41 Report #: [id number] THIS REPORT FOR: cc: Regan Burnett James L. DO Al-Absi, Ahmed I. MD ~ CC: Ian Burnett REASON FOR CONSULTATION: Hyponatremia. REASON FOR PRESENTATION: Dizziness, pontine infarct. HISTORY OF PRESENT ILLNESS: This is a 79-year-old with past medical history of hypertension, AFib, history of pituitary macroadenoma. He presented with worsening dizziness spells, slurred speech and was found to have subacute infarct of the rhonda. He was admitted to the acute care facility hospital on the of this month. He was then transferred to the rehabilitation floor. The patient's sodium has been trending down from a value of 127 on admission to 123 as of yesterday. It does look like that the patient had an episode of hyponatremia back in 2008 and his sodium at that time went all the way down to 113. The patient also tells me that he has history of pituitary macroadenoma. This was resected back about 10 years ago. However, the patient had what seems to be a recurrence of his tumor and had been followed up with [facility]. His first surgery was complicated by loss of vision on the right eye, loss of sense of taste and smell. There are no new medications ever since the patient was hospitalized. He does not recall ever being told that he had some issues with hypoadrenalism. He is not maintained on any hormonal replacement. No hydrochlorothiazide. No nonsteroidal anti-inflammatory medications. The patient tells me that prior to the hospitalization, he used to drink anywhere from 2-4 liters of water a day. There is no sodium value available today. Kidney function remained stable. Thyroid and random cortisol were within target range. His urine specific gravity is within normal range at 1.025. Osmolarity studies are pending. PAST MEDICAL HISTORY: Extensive and includes the followin. Atrial fibrillation. 2. Pituitary microadenoma post-resection 10 years ago. 3. Hypertension. 4. Recent stroke. 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 6. Testicular cancer post-radiation and orchiectomy. 7. Kidney stones. 8. Neck surgery. MEDICATIONS: Listed that he was takin. Chlorthalidone. [facility] [address] [place] [address] CONSULTATION Name: LYNDA KEMP Room #: 509-P [facility] IN .R.#: [id number] Admission: 12/22/19 Attend Phys: Ian Yu MD Discharge: Date of : 41 Report #: [id number] 2. Carvedilol. 3. Meclizine. 4. Flomax. FAMILY HISTORY: Hypertension. 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 No drug or alcohol abuse. REVIEW OF SYSTEMS: GENERAL: No fever or chills. CARDIOVASCULAR: No chest pain or palpitation. NECK: Supple. PULMONARY: No cough or hemoptysis. GASTROINTESTINAL: No nausea or vomiting. GENITOURINARY: No frequency or urgency. NEUROLOGICAL: As per the history of present illness. PHYSICAL EXAMINATION: GENERAL: He is alert, oriented, in no apparent distress. VITAL SIGNS: Temperature is 36.3, blood pressure is 130/83, pulse rate is 88. HEAD AND NECK: No jugular venous distention. CHEST: No crackles. CARDIOVASCULAR: No rub. ABDOMEN: Soft. LOWER EXTREMITIES: No edema. LABORATORY VALUES Laboratory values from yesterday revealed hemoglobin of 12.4. Sodium was 123, potassium is 4.1, chloride is 89, BUN is 14, creatinine is 0.8. ASSESSMENT AND PLAN: 1. 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 No sodium values today. I will obtain some labs. Workup had been initiated. Chlorthalidone has been discontinued. No further IV fluid. Placed on fluid restrictions. 2. Add salt tablet. 3. We will continue to follow during his hospital stay. <ELECTRONICALLY SIGNED> By: Thea Meraz MD 12/29/19 0818 [id number] Thea Meraz MD /nt
--- NOTE | 2019-12-29 10:03 | NUR ---
cm faxed oupt order for pt and ot to [facility] and faxed [facility] outpt st for vital stim. will transport home today around 1300
[2019-12-29 10:56] VITALS: BP 132/80
[2019-12-29] MEDS ORDERED: B-12500 MCG PO (11:23)
[2019-12-29] MEDS ORDERED: PEPCID20 MG PO (11:23)
[2019-12-29 12:14] VITALS: BP 132/80
--- NOTE | 2019-12-29 12:14 | NUR ---
ASSUMED CARE OF PT AT 0700. PT IS A&OX4 AND VITAL SIGNS ARE STABLE. PT DENIES PAIN. ORDERS FOR DISCHARGE TODAY. PT PERFORMED ADLS INDEPENDENTLY. REVIEWED DISCHARGE ORDERS, INSTRUCTIONS, MEDICATIONS, AND EDUCATION WITH AND PT PRIOR TO DISCHARGE. SCRIPTS SENT TO PHARMACY OF CHOICE. HOME MEDICATIONS GIVEN TO THIS AM FOR DISCHARGE HOME. ST WORKED WITH PT AND PRIOR TO DISCHARGE. AND PT DENY QUESTIONS AT TIME OF DISCHARGE. PT ASSITED TO DISCHARGE BY NURSING STAFF AT 1200.
== END 2019-12-29 12:00 | disposition home health service (06) | DRG 65 ==
PROVIDERS: Hospitalist; Nurse Practitioner; Nurse Practitioner Family; ADMIT Physical Medicine & Rehabilitation; ATTEND Physical Medicine & Rehabilitation
DX: I63.9 Cerebral infarction, unspecified (principal); I48.20 Chronic atrial fibrillation, unspecified; E87.1 Hypo-osmolality and hyponatremia; D68.59 Other primary thrombophilia; I10 Essential (primary) hypertension; E78.5 Hyperlipidemia, unspecified; N40.0 Benign prostatic hyperplasia without lower urinary tract symptoms; I95.9 Hypotension, unspecified; R41.9 Unspecified symptoms and signs involving cognitive functions and awareness; I95.1 Orthostatic hypotension; D35.2 Benign neoplasm of pituitary gland; R13.10 Dysphagia, unspecified; I25.5 Ischemic cardiomyopathy; Z85.47 Personal history of malignant neoplasm of testis; Z88.8 Allergy status to other drugs, medicaments and biological substances; Z79.82 Long term (current) use of aspirin; Z79.899 Other long term (current) drug therapy
CPT/HCPCS: 10112

== ENCOUNTER → 2020-05-29 | Outpatient (CLI) | payer OTHER ==
[~2020-05-29] MED LIST changes: +ASA5UEC PO; +B-12500 MCG PO; +COZAAR 25 MG TA25 M1 PO; +PEPCID20 MG PO; +TYLENOL325 MG PO
== END ==
LOC: SJCVCIMAG 09:14
PROVIDERS: ATTEND Internal Medicine Cardiovascular Disease
DX: I08.0 Rheumatic disorders of both mitral and aortic valves (principal); R94.31 Abnormal electrocardiogram [ECG] [EKG]; I49.3 Ventricular premature depolarization; I77.89 Other specified disorders of arteries and arterioles; I48.21 Permanent atrial fibrillation; I11.9 Hypertensive heart disease without heart failure; E78.00 Pure hypercholesterolemia, unspecified; I42.9 Cardiomyopathy, unspecified; E78.5 Hyperlipidemia, unspecified; Z98.890 Other specified postprocedural states; Z88.8 Allergy status to other drugs, medicaments and biological substances; Z79.82 Long term (current) use of aspirin; Z79.899 Other long term (current) drug therapy; Z86.73 Personal history of transient ischemic attack (TIA), and cerebral infarction without residual deficits

== ENCOUNTER → 2021-01-13 | Outpatient (CLI) | payer OTHER | LOC: SJCVC 10:24 | PROVIDERS: ATTEND Internal Medicine Cardiovascular Disease | DX: R94.31 Abnormal electrocardiogram [ECG] [EKG] (principal); I48.21 Permanent atrial fibrillation; E78.00 Pure hypercholesterolemia, unspecified; I05.9 Rheumatic mitral valve disease, unspecified; D68.59 Other primary thrombophilia; I10 Essential (primary) hypertension; I42.9 Cardiomyopathy, unspecified; E78.5 Hyperlipidemia, unspecified; F10.10 Alcohol abuse, uncomplicated; Z79.899 Other long term (current) drug therapy; Z79.82 Long term (current) use of aspirin; Z86.73 Personal history of transient ischemic attack (TIA), and cerebral infarction without residual deficits; Z88.8 Allergy status to other drugs, medicaments and biological substances ==